=== PATIENT | male | born 1960 | race Caucasian/White ===

== ENCOUNTER 2024-12-05 11:03 | Outpatient (CLI) | payer MEDICARE, OTHER, SELFPAY ==
--- NOTE | ~2024-12-05 | PE_ITS ---
EXAMINATION: PET_PETPSMAST_PT DATE: 12/05/2024 13:24 INDICATION: Prostate cancer TECHNIQUE: 6.041 mCi of Illucix Ga-[id number]) was administered i.v. Low dose computed almaz graphy (CT) images were acquired from the base of the brain to the base of the brain to the proximal thighs for attenuation correction and anatomic localization. Positron emission tomography (PET) image s were acquired in the same distribution beginning 87 minutes after injection. Images including fused PET/CT images were reconstructed in axial, coronal, and sagittal planes. Automated exposure control technique was employed. The dose-length product was 723.64mGy-cm. COMPARISON: None FINDINGS: Head/neck: Typical pattern of symmetric physiologic increased activity in the lacrimal, parotid and submandibula r glands as well as along the mucosa of the nasal and oral cavities, pharynx and hypopharynx. No path ologically enlarged cervical lymphadenopathy or suspicious foci of increased uptake in the visualized head or neck. Chest: Small calcified nodules at the right apex consistent with old granulomatous disease. Mild dependent a telectasis in bilateral lower lobes. No other suspicious noncalcified pulmonary nodules, pneumonia, p ulmonary edema or pleural effusion. Heart size normal. No pericardial effusion. Thoracic aorta is nor mal in caliber. No pathologically enlarged or PSMA avid thoracic lymphadenopathy. Abdomen/pelvis/proximal thighs: Physiologic renal accumulation and excretion of activity in the kidneys, bladder and along portions o f ureters. Prostatomegaly measuring 4.7 x 3.7 cm. There is an approximately 1 cm focus of prominent i ncreased uptake with maximal SUV of 21.5 at the left posterior aspect of the prostate consistent with primary prostate cancer. Normal degree and slightly heterogenous pattern of increased uptake through out the liver and spleen without radiologic correlate or dominant PSMA avid lesion. The gallbladder, pancreas and bilateral adrenal glands are normal. Moderate uptake scattered throughout the bowels wit h typical duodenal and proximal jejunal predominance and without radiologic correlate, also likely ph ysiologic. Normal appendix. No other abnormal foci of increased uptake or pathologically enlarged lym phadenopathy in the abdomen, pelvis or proximal thighs. Musculoskeletal: No suspicious lytic, blastic or abnormally PSMA avid bone lesions. IMPRESSION: 1. Small region of prominent increased activity left posterior aspect of the enlarged prostate consis tent with primary prostate cancer. No evident metastatic disease. Reviewed, dictated and finalized at location A. IMPRESSION: 1. Small region of prominent increased activity left posterior aspect of the en larged prostate consistent with primary prostate cancer. No evident metastatic disease.
--- OUTSIDE RECORDS SUMMARY | 2024-12-05 11:08 | XMS_ITS | Referral Summary ---
Author Organization [facility] [address] Address [address] [place] [address] Phone Care Team Providers Care Hair Worker Name Role Phone Harish Crain MD Primary Care Provider [phone]- [phone] Encounters Date Type Department Care Team Description 11/13/2024 11:30 AM CDT - 11/13/2024 12:30 PM CDT Surgery [facility] Operating Room [address] [place] [address] Robert Jensen MD Transrectal ultrasound guided prostate biopsy 11/13/2024 10:40 AM CDT Anesthesia Event [facility] Operating Room [address] [place] [address] Caden Lees MD Reynolds, Ethan Emerson, MD 11/13/2024 8:44 AM CDT - 11/13/2024 1:00 PM CDT Hospital Encounter [facility] Operating Room 1 [place] [address] Robert Jensen MD Elevated prostate specific antigen (PSA) Discharge Disposition: Discharge to home or self care 09/22/2024 [facility] [address] [facility] [address] [place] [phone] Harish Crain MD Lab ([facility]) 09/22/2024 9:30 AM SHOT DROPPER Office Visit [facility] [address] [facility] [address] [place] [phone] Harish Crain MD Mixed hyperlipidemia (Primary Dx); Screening PSA (prostate specific antigen); Routine physical examination 09/15/2024 8:00 AM SHOT DROPPER Lab [facility] [address] [place] [address] Mixed hyperlipidemia from Last 3 Months Allergies Active Allergy Reactions Criticality Noted Date Comments Penicillins Rash Medium As child Medications No known medications Active Problems Problem Noted Date Diagnosed Date Elevated prostate specific antigen (PSA) 025 Family history of colon cancer 04/21/2024 Personal history of colonic polyps 04/21/2024 Routine physical examination 04/21/2024 Assessment & Plan (09/22/2024 12:31 PM SHOT DROPPER): IMMUNIZATIONS WERE REVIEWED EYE EXAM AND DENTAL UPTODATE NO CONGTIVE DECLINE SENSROY/ CONDUCTIVE HEARING LOSS CHRONIC AND STABLE COLONSCOPY UPTODATE SKIN ASSESSMENT WITH NO SUSPICIOUS LESIONS MIXED HYPERLIPIMDEWIA GOAL LDL IS UNDER 100 Mixed hyperlipidemia 11/12/2023 Assessment & Plan (03/13/2024 1:27 PM CDT): Flp and ldl were reviewed Goal ldl is under 100 Currently being controlled with diet and exercise/ has an appt with nutrutionist Assessment & Plan (11/12/2023 8:22 AM CDT): POOLED COHORT SCORE IS 11 PERCENT DECLINES A STATIN DISCUSSED REFERRAL FOR LOTTERY CLERK WAS DONE TODAY RPT FLP IN FOUR MONTH Elevated PSA measurement 11/12/2023 Assessment & Plan (03/13/2024 1:28 PM CDT): With steadily increasing values . 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 hence active surveillance follow up with dr jensen Assessment & Plan (11/12/2023 8:23 AM CDT): NUMBERS WERE DISCUSSED TODAY GRADUAL INCREASE IN PSA PT IS ASYMPTOMATIC WILL GO AHEAD AND REFER TO UROLOGY FOR FURTHER WORK UP Mixed conductive and sensori neural hearing loss of both ears 12/24/2017 Immunizations Immunization Administration Dates Next Due Influenza, Unspecified 09/22/2024(Deferr ed: Patient Refused),05/10/2023(Deferred: Patient Refused) Moderna SARS-CoV-2 Monovalen t Vaccination (12+ YRS) 11/05/2020,10/08/2020 Pfizer SARS-CoV-2 Monovalent Vaccination (12+ Yrs) PURPLE 05/03/2023 Tdap 04/25/2021 ZOSTER Recombinant 10/24/2023,08/15/2023 Social History Tobacco Use Types Packs/Day Years Used Date Smoking Tobacco: Never Smokeless Tobacco: Never Tobacco Cessation:Counseling Given: Not Answered Alcohol Use Standard Drinks/Week Comments No 0 (1 standard drink = 0.6 oz pur e alcohol) AUDIT-C Answer Date Recorded Q1: How often do you have a drink containing alc ohol? 2-4 times a month 11/13/2024 Q2: How many drinks containi ng alcohol do you have on a typical day when you are drinking? 1 or 2 11/13/2024 Q3: How often do you have si x or more drinks on one occasion? Never 11/13/2024 PHQ-2 Answer Date Recorded PHQ-2 Total Score (If total score is 3 or more points, staff should administer the PHQ-9) 0 09/22/2024 Personal Safety Answer Date Recorded Have you ever been in or are you currently in a harmful physical or emotional relationship or is someone making you feel afraid or unsafe? Denies 11/13/2024 Sex and Gender Information Value Date Recorded Sex Assigned at Not on file Legal Sex Male 4:07 PM SHOT DROPPER Gender Identity Not on file Sexual Orientation Not on file Last Filed Vital Signs Vital Sign Reading Time Taken Comments Blood Pressure 134/73 11/13/2024 12:35 PM CDT Pulse 51 11/13/2024 12:35 PM CDT Temperature 36.2 C (97.1 F) 11/13/2024 12:35 PM CDT Respiratory Rate 16 11/13/2024 12:35 PM CDT Oxygen Saturation 100% 11/13/2024 12:35 PM CDT Inhaled Oxygen Concentration - - Weight 69.1 kg (152 lb 5.4 oz) 11/13/2024 9:02 A M CDT Height 180.3 cm (5' 11 ) 11/13/2024 9:02 AM CDT Body Mass Index 21.25 11/13/2024 9:02 AM CDT Plan of Treatment Not on file Procedures Procedure Name Priority Date/Time Associated Diagnosis Comments SURGICAL PATHOLOGY Routine 11/13/2024 1: 24 PM CDT Elevated prostate specific antigen (PSA) URONAV GUIDED PROSTATE BIOPSY 11/13/2024 10:40 AM CDT Elevated prostate specific antigen (PSA) EGFR Routine 09/15/2024 8:00 AM SHOT DROPPER Mixed hyperlipidemia DIFFERENTIAL AUTO Routine 09/15/2024 8:0 0 AM SHOT DROPPER Mixed hyperlipidemia CBC WITH AUTO DIFFERENTIAL Routine 09/15/2024 8:00 AM SHOT DROPPER Mixed hyperlipidemia COMPREHENSIVE METABOLIC PANEL Routine 09/15/2024 8:00 AM SHOT DROPPER Mixed hyperlipidemia LIPID PANEL Routine 09/15/2024 8:00 AM SHOT DROPPER Mixed hyperlipidemia COLONOSCOPY 07/01/2024 7:08 AM SHOT DROPPER PSA SCREEN Routine 11/06/2023 7:59 AM CDT Routine physical examination Elevated PSA from Last 3 Months or Most Recently Relevant to Health Maintenance Results * Surgical pathology (11/13/2024 1:24 PM CDT) Tissue (Prostate, Needle Biopsy) 11/13/2024 9:52 AM CDT Tissue specimen (specimen) (Prostate, Needle Biopsy) 11/13/2024 9:52 AM CDT Tissue specimen (specimen) (Prostate, Needle Biopsy) 11/13/2024 9:52 AM CDT Tissue specimen (specimen) (Prostate, Needle Biopsy) 11/13/2024 9:52 AM CDT Tissue specimen (specimen) (Prostate, Needle Biopsy) 11/13/2024 9:52 AM CDT Tissue specimen (specimen) (Prostate, Needle Biopsy) 11/13/2024 9:52 AM CDT Tissue specimen (specimen) (Prostate, Needle Biopsy) 11/13/2024 9:52 AM CDT Tissue specimen (specimen) (Prostate, Needle Biopsy) 11/13/2024 9:52 AM CDT Tissue specimen (specimen) (Prostate, Needle Biopsy) 11/13/2024 9:52 AM CDT Tissue specimen (specimen) (Prostate, Needle Biopsy) 11/13/2024 9:52 AM CDT Tissue specimen (specimen) (Prostate, Needle Biopsy) 11/13/2024 9:52 AM CDT Tissue specimen (specimen) (Prostate, Needle Biopsy) 11/13/2024 9:52 AM CDT Narrative PATHOLOGY [facility] - 11/18/2024 11:24 AM CDT EPIC results best viewed via link to PDF [facility] Department of Pathology [address] [place] [address] Note to Patients: This report may contain a detailed description of human tissue sent by a health care provider to the laboratory for pathologic evaluation. The content of this report is essential for diagnosis and may provide important critical findings. This information may be unfamiliar to patients to review without a medical professional present. It is advised that the patient review this report in the presence of a health care provider who can answer questions and explain the details. Final Report Patient Name: LIVE ROSE JRTriston Address: [address] [place] [address]- Gender: M : 1960 (Age: 64) Service: Surgery Location: [facility] Hospital #: [id number] Patient Type: [facility] Taken: 11/13/2024 Received: 11/13/2024 Accessioned: 11/13/2024 Reported: 11/18/2024 Physician(s):Robert Jensen M.D. Diagnosis: G, I. Prostate (LLB, LLM), needle biopsies: - Adenocarcinoma: - LLB: 4 + 3 = 7 (80% pattern 4), grade group 3, involving 6 linear mm (50% of total core length). - LLM: 4 + 3 = 7 (70% pattern 4), grade group 3, involving 4 linear mm (30% of total core length) A-F, H, J-L. Prostate (RLB, RMB, RLM, RMM, RLA, RMA, LMB, LMM, LLA, LMA), needle biopsies: - Benign prostatic tissue. Vlad Keys MD Report Electronically Reviewed and Signed Out By Vlad Keys MD 11/18/2024 11:24:13 Specimen(s) Received: A: Right lateral base B: Right medial base C: Right lateral mid D: Right medial mid E: Right lateral apex F: Right medial apex G: Left lateral base H: Left medial base I: Left lateral mid J: Left medial mid K: Left lateral apex L: Left medial apex Microscopic Description: G, I. Specimens from these sites show similar findings and will be described together. Sections show adenocarcinoma. PIN-4 stains are performed with appropriately reactive controls (blocks G1, I1) and show loss of the basal cell layers and increased AMACR expression in the adenocarcinoma. Recommend follow-up as clinically indicated. A-F, H, J-L. Specimens from these sites show similar findings and will be described together. Sections show benign-appearing prostatic glands and stroma. PIN-4 stains are performed with appropriately reactive controls on blocks B1 and L1 to evaluate a few mildly distorted glands and demonstrate no increase in AMACR expression with concurrent loss of basal layer staining. Intradepartmental consultation: Specimens B, G, I, and L from this case were also reviewed by Dr. Britton, who concurs with the above findings. Clinical History: Elevated prostate specific antigen. Transrectal ultrasound guided prostate biopsy. Gross Description: The specimen is submitted in twelve containers labeled LIVE ROSE . A. The first container is labeled left lateral base . It is 1 core of morgan tissue measuring 1.5 cm. Entirely in A. B. The second container is labeled right medial base . It is 1 core of morgan tissue measuring 1.4 cm. Entirely in B. C. The third container is labeled right lateral mid . It is 1 core of morgan tissue measuring 1 cm. Entirely in C. D. The fourth container is labeled right medial mid . It is 1 core of morgan tissue measuring 1.1 cm. Entirely in D. E. The fifth container is labeled right lateral apex . It is 1 core of morgan tissue measuring 1 cm. Entirely in E. F. The sixth container is labeled right medial apex . It is 1 core of morgan tissue measuring 4 mm. Entirely in F. G. The seventh container is labeled left lateral base . It is 1 core of morgan tissue measuring 1.2 cm. Entirely in G. H. The eighth container is labeled left medial base . It is 1 core of morgan tissue measuring 8 mm. Entirely in H. I. The ninth container is labeled left lateral mid . It is 1 core of morgan tissue measuring 1.3 cm. Entirely in I. J. The tenth container is labeled left medial mid . It is 1 core of morgan tissue measuring 1.2 cm. Entirely in J. K. The eleventh container is labeled left lateral apex . It is 1 core of morgan tissue measuring 7 mm. Entirely in K. L. The twelfth container is labeled left medial apex . It is 1 core of morgan tissue measuring 7 mm. Entirely in L. T.A. Fabiola Wakefield, Harrison./Rupert Nicholson M.D. REPORT IMAGES AND SCANNED DOCUMENTS, IF INCLUDED, ONLY VIEWABLE IN PDF VERSION OF REPORT The performance characteristics of some immunohistochemical stains, fluorescence in-situ hybridization tests and immunophenotyping by flow cytometry cited in this report (if any) were determined by the Surgical Pathology Department at [facility] as part of an ongoing quality control manager program and in compliance with federally mandated regulations drawn from the Clinical Laboratory Improvement Act of 1988 (CLIA '88). Some of these tests rely on the use of analyte specific reagents and are subject to specific labeling requirements by the US Food and Drug Administration. Such diagnostic tests may only be performed in a facility that is certified by the Department of Health and Human Services as a high complexity laboratory under CLIA '88. The FDA has determined that such clearance or approval is not necessary. This test is used for clinical purposes. It should not be regarded as investigational or for research. Nevertheless, federal rules concerning the medical use of analyte specific reagents require that the following disclaimer be attached to the report: This test was developed and its performance characteristics determined by the Surgical Pathology Department [facility]. It has not been cleared or approved by the U. S. Food and Drug Administration. Note for decalcified specimens: This assay has not been validated on decalcified tissues. Results should be interpreted with caution given the possibility of false negativity on decalcified specimens Robert Jensen MD LAB PATHOLOGY ORDERA BLES Final Result PATHOLOGY [facility] ([place] 1 [place] [address] * eGFR (09/15/2024 8:00 AM SHOT DROPPER) eGFR 83 >=60 mL/min/1. 73 m2 Comment: Interpretive Data Reference Interval Normal >/= 90 mL/min/1.73m2 Mildly decreased* 60 - 89 mL/min/1.73m2 Mildly to moderately decreased 45 - 59 mL/min/1.73m2 Moderately to severely decreased 30 - 44 mL/min/1.73m2 Severely decreased 15 - 29 mL/min/1.73m2 Kidney Failure < 15 mL/min/1.73m2 *Relative to young adult level Estimated glomerular filtration rate is determined by the 2020 CKD-EPI equation recommended by the National Kidney Foundation (A Unifying Approach to GFR Estimation: Recommendations of the NKF-ASK Task Force on Reassessing the Inclusion of Race in Diagnosing Kidney Disease, JASN 2020). The CKD-EPI equation should not be used for patients with unstable renal function and has not been validated in children and those over 70. Current interpretive data was last reviewed 2021. Testing performed by: [address] [address] Blood 09/15/2024 8:00 AM SHOT DROPPER 09/15/2024 12:45 PM SHOT DROPPER Harish Crain MD LAB BLOOD ORDERABLES Final Result [address] [place] [address] * Differential, auto (09/15/2024 8:00 AM SHOT DROPPER) Pathologist [facility] Neutrophil abs 2.5 1.5 - 6.5 K/cumm Comment:Testing performed by : [address] [address] Imm gran abs 0.0 0.0 - 0.1 K/cumm MARIELY Comment:Testing performed by : [address], [address] Lymphocyte abs 1.1 0.8 - 3.3 K/cumm MARIELY Comment:Testing performed by : [address], [address] Monocyte abs 0.5 0.2 - 0.8 K/cumm CERNER CH Comment:Testing performed by : [facility], [address] [place] [address]., [address] Eosinophil abs 0.3 0.0 - 0.5 K/cumm CERNER CH Comment:Testing performed by : [facility], [address] [place] [address]., [address] Basophil abs 0.0 0.0 - 0.1 K/cumm CERNER CH Comment:Testing performed by : [address] [address] Neutrophil pct 55.8 % CERNER CH Comment: Interpretive Data Percent cell count reference ranges are not reported, since discordance with absolute values may lead to misinterpretation of CBC data. Current Interpretive Data was last revised on 2017. Testing performed by: [address] [address] Imm gran pct 0.2 % CERNER CH Comment: Interpretive Data Percent cell count reference ranges are not reported, since discordance with absolute values may lead to misinterpretation of CBC data. Current Interpretive Data was last revised on 2017. Testing performed by: [facility], [address] [place] [address]., [address] Lymphocyte pct 24.5 % CERNER CH Comment: Interpretive Data Percent cell count reference ranges are not reported, since discordance with absolute values may lead to misinterpretation of CBC data. Current Interpretive Data was last revised on 2017. Testing performed by: [address] [address] Monocyte pct 11.6 % CERNER CH Comment: Interpretive Data Percent cell count reference ranges are not reported, since discordance with absolute values may lead to misinterpretation of CBC data. Current Interpretive Data was last revised on 2017. Testing performed by: [address] [address] Eosinophil pct 7.0 % CERNER CH Comment: Interpretive Data Percent cell count reference ranges are not reported, since discordance with absolute values may lead to misinterpretation of CBC data. Current Interpretive Data was last revised on 2017. Testing performed by: [address] [address] Basophil pct 0.9 % CERNER CH Comment: Interpretive Data Percent cell count reference ranges are not reported, since discordance with absolute values may lead to misinterpretation of CBC data. Current Interpretive Data was last revised on 2017. Testing performed by: [address] [address] Blood 09/15/2024 8:00 AM SHOT DROPPER 09/15/2024 12:30 PM SHOT DROPPER Harish Crain MD LAB BLOOD ORDERABLES Final Result [address] Department [place] [address] * CBC with auto differential (09/15/2024 8:00 AM SHOT DROPPER) WBC 4.4 3.8 - 9.9 K/cumm Comment:Testing performed by : [address], [address] Hgb 14.6 13.0 - 17.5 g/dL CERNER Comment:Testing performed by : [address], [address] Hct 44.8 38.9 - 50.3 % CERNER Comment:Testing performed by : [address], [address] Plt 249 150 - 400 K/cumm CERNER CH Comment:Testing performed by : [address], [address] MPV 11.0 9.1 - 12.3 fL CERNER CH Comment:Testing performed by : [address], [address] RBC 4.75 4.30 - 5.80 M/cumm CERNER CH Comment:Testing performed by : [address], [address] MCV 94.3 81.3 - 96.4 fL CERNER CH Comment:Testing performed by : [address], [address] MCH 30.7 27.1 - 33.3 pg CERNER CH Comment:Testing performed by : [address], [address] MCHC 32.6 32.3 - 35.7 g/dL MARIELY Comment:Testing performed by : [address] [address] RDW CV 11.9 11.1 - 14.9 % MARIELY Comment:Testing performed by : [address] [address] RDW SD 41.4 35.7 - 48.1 fL MARIELY Comment:Testing performed by : [address], [address] NRBC abs 0.00 0.00 - 0.01 K/cumm MARIELY Comment:Testing performed by : [address], [address] Blood 09/15/2024 8:00 AM SHOT DROPPER 09/15/2024 12:30 PM SHOT DROPPER Harish Crain MD LAB BLOOD ORDERABLES Final Result [facility] [address] [place] [address] * Lipid panel (09/15/2024 8:00 AM SHOT DROPPER) Cholesterol 195 30 - 199 mg/dL Comment: Interpretive Data Ages < or = 19 years Acceptable: <170 mg/dL Borderline high: 170-199 mg/dL High: >or= 200 mg/dL Ages > or = 20 years Desirable: <200 mg/dL Borderline high: 200-239 mg/dL High: >or= 240 mg/dL Literature References: 1. Expert Panel on Integrated Guidelines for Cardiovascular Health and Risk Reduction in Children and Adolescents. Pediatrics 2011;128:S213 2. NCEP Expert Panel. Circulation 2004;110:227 Current Interpretive Data was last revised on 2018. Testing performed by: [address], [address] Triglycerides 48 <=149 mg/dL MARIELY Comment: Interpretive Data Ages < or = 9 years Acceptable: <75 mg/dL Borderline high: 75-99 mg/dL High: >or= 100 mg/dL Ages 10 to 20 years Acceptable: <90 mg/dL Borderline high: 90-129 mg/dL High: >or= 130 mg/dL Ages > or = 20 years Desirable: <150 mg/dL Borderline high: 150-199 mg/dL High: 200-499 mg/dL Very high: >or= 499 mg/dL Literature References: 1. Expert Panel on Integrated Guidelines for Cardiovascular Health and Risk Reduction in Children and Adolescents. Pediatrics 2011;128:S213 2. NCEP Expert Panel. Circulation 2004;110:227 Current Interpretive Data was last revised on 2018. Testing performed by: [facility], [address] [place] [address]., [address] HDL 68 >=40 mg/dL MARIELY Comment: Interpretive Data Ages < or = 19 years Acceptable: >45 mg/dL Borderline low: 40-45 mg/dL Low: <40 mg/dL Ages > or = 20 years Desirable: >or= 60 mg/dL Low: <40 mg/dL Literature References: 1. Expert Panel on Integrated Guidelines for Cardiovascular Health and Risk Reduction in Children and Adolescents. Pediatrics 2011;128:S213 2. NCEP Expert Panel. Circulation 2004;110:227 Current Interpretive Data was last revised on 2018. Testing performed by: [facility], [address] [place] [address]., [address] LDL, calculated 118 <=129 mg/dL [facility] Comment: Interpretive Data Ages < or = 19 years Acceptable: <110 mg/dL Borderline high: 110-129 mg/dL High: >or= 130 mg/dL Ages > or = 20 years Optimal: <100 mg/dL Near optimal: 100-129 mg/dL Borderline high: 130-159 mg/dL High: >160 mg/dL Calculated using the Brando LDL-C estimating equation. This equation was implemented on 2024. Prior to this date LDL-C was estimated using the Friedewald equation. Literature References: 1. Expert Panel on Integrated Guidelines for Cardiovascular Health and Risk Reduction in Children and Adolescents. Pediatrics 2011;128:S213 2. NCEP Expert Panel. Circulation 2004;110:227 3. Brando Hou al. GLENN Cardiol. 2020 November 20;5(5):540-548. doi: 10.1001/jamacardio.2020.0013 Current Interpretive Data was last revised on 2024. Testing performed by: [address] [address] Non-HDL Cholesterol 127 mg/dL MARIELY Comment: Interpretive Data Ages < or = 19 years Acceptable: <120 mg/dL Borderline high: 120-144 mg/dL High: >145 mg/dL Ages > or = 20 years When triglycerides are >200 mg/dL, Non-HDL cholesterol is a secondary target of therapy with treatment goals that are 30 mg/dL greater than the LDL cholesterol target. Literature References: 1. Expert Panel on Integrated Guidelines for Cardiovascular Health and Risk Reduction in Children and Adolescents. Pediatrics 2011;128:S213 2. NCEP Expert Panel. Circulation 2004;110:227 Current Interpretive Data was last revised on 2018. Testing performed by: [address] [address] Chol/HDL ratio 3 MARIELY Comment:Testing performed by : [address] [address] Blood 09/15/2024 8:00 AM SHOT DROPPER 09/15/2024 12:30 PM SHOT DROPPER us Harish Crain MD LAB BLOOD ORDERABLES Final Result MARIELY [address] Department [place] [address] * Comprehensive metabolic panel (09/15/2024 8:00 AM SHOT DROPPER) Sodium 142 135 - 145 mmol/L Comment:Testing performed by : [address] [address] Potassium, pl 4.5 3.3 - 4.9 mmol/L MARIELY Comment:Testing performed by : [address] [address] Chloride 105 97 - 110 mmol/L MARIELY Comment:Testing performed by : [address] [address] CO2 25 22 - 32 mmol/L MARIELY Comment:Testing performed by : [address] [address] Anion gap 12 2 - 15 mmol/L CERNER CH Comment:Testing performed by : [address] [address] BUN 21 6 - 25 mg/dL CERNER CH Comment:Testing performed by : [address] [address] Creatinine 1.01 0.80 - 1.30 mg/dL CERNER CH Comment:Testing performed by : [address], [address] Glucose 100 70 - 199 mg/dL CERNER CH Comment: Interpretive Data Fasting glucose >/= 126 mg/dl is diagnostic for diabetes. Fasting is defined as no caloric intake for at least 8 hours. Fasting glucose between 100 mg/dl to 125 mg/dl is diagnostic of prediabetes. In a patient with classic symptoms of hyperglycemia or hyperglycemic crisis, a random glucose >/= 200 mg/dl is diagnostic for diabetes. In the absence of unequivocal hyperglycemia, results should be confirmed by repeat testing. The classification and Diagnosis of Diabetes Diabetes Care 2021; 46: S19-S40. Current interpretive data was last revised 2022. Testing performed by: [address] [address] Calcium 9.4 8.5 - 10.3 mg/dL CERNER CH Comment:Testing performed by : [address], [address] Bilirubin, total 0.5 0.1 - 1.2 mg/dL CERNER CH Comment:Testing performed by : [address], [address] Protein, pl 6.8 6.5 - 8.5 g/dL CERNER CH Comment:Testing performed by : [address] [address] Albumin 4.2 3.5 - 5.0 g/dL CERNER CH Comment:Testing performed by : [address], [address] Alk phos 65 40 - 130 Units/L CERNER CH Comment:Testing performed by : [address], [address] ALT 20 7 - 55 Units/L CERNER CH Comment:Testing performed by : [address], [address] AST 17 10 - 50 Units/L MARIELY STOCK Comment:Testing performed by : [facility] Center, [address] [place]., [address] Blood 09/15/2024 8:00 AM SHOT DROPPER 09/15/2024 12:30 PM SHOT DROPPER Harish Crain MD LAB BLOOD ORDERABLES Final Result [facility] [address] [facility] Department [place] [address] * Colonoscopy (07/01/2024 7:08 AM SHOT DROPPER) Anatomical Region Laterality Modality Other Narrative Procedure Note Charlie Cantrell, - 07/01/2024 7:08 AM CST [facility] Patient Name: Live Rose Procedure Date: 07/01/2024 7:08 AM Date of : 1960 Admit Type: Outpatient Age: 63 Gender: Male Attending MD: Charlie Cantrell D.O. Room: [facility] ENDOSCOPY ROOM 2 Note Status: Finalized Patient Profile: Refer to note in patient chart for documentation of history and physical. Procedure: Colonoscopy Indications: High risk colon cancer surveillance: Personalhistory of colonic polyps, Last colonoscopy: December 2017 Referring MD: Harish Crain M.D. Providers: Charlie Cantrell D.O. Impression: - The examined portion of the ileum was normal. - The entire examined colon is normal on direct and retroflexion views. - No specimens collected. Recommendation: - Discharge patient to home. - Resume previous diet. - Continue present medications. - Repeat colonoscopy in 5 years for surveillance. - Return to primary care physician PRN. Medicines: Monitored Anesthesia Care Complications: No immediate complications. Estimated Blood Loss: Estimated blood loss was minimal. Procedure: Pre-Anesthesia Assessment: - As per anesthesia. The benefits, risks and alternatives of theprocedure and sedation were discussed and informed consentwas obtained. All questions were answered. Please referto the signed informed consent document in the medical record. The bowel preparation used was Miralax via split dose instruction. The bowel preparation usedwas bisacodyl tablets via split dose instruction. The scope was passed under direct vision. The Pediatric Colonoscope [id number]-[id number] was introducedthrough the anus and advanced to the 5 cm into the ileum.The terminal ileum, ileocecal valve, appendicealorifice, and rectum were photographed. The colonoscopy was somewhat difficult due to a redundant colon. The patient tolerated the procedure well. The qualityof the bowel preparation was good. Findings: The perianal and digital rectal examinations were normal. The terminal ileum appeared normal. The entire examined colon appeared normal on direct and retroflexion views. Electronically signed by Charlie Cantrell M.D. Charlie Cantrell D.O. 07/01/2024 7:53:14 AM Number of Addenda: 0 Note Initiated On: 07/01/2024 7:08 AM Procedure Code(s): --- Professional --- G0105, Colorectal cancer screening; colonoscopy on individual at high risk --- Technical --- G0105, Colorectal cancer screening; colonoscopy on individual at high risk Diagnosis Code(s): --- Professional --- Z86.010, Personal history of colonic polyps --- Technical --- Z86.010, Personal history of colonic polyps CPT copyright 2020 [employer]. All rights reserved. The codes documented in this report are preliminary and upon foreign collection clerk reviewmay be revised to meet current compliance requirements. Recognized by the [employer] for promoting quality in endoscopy Charlie Cantrell DO ENDOSCOPY PROCEDURES Final Res ult * PSA screen (11/06/2023 7:59 AM CDT) PSA-Total 4.14 <=5.40 ng/mL Comment: Interpretive Data AGE SEX REFERENCE INTERVAL 0 minutes-150 years Female None 0 minutes-49 years Male None 50-59 years Male 0-3.90 60-69 years Male 0-5.40 70-79 years Male 0-6.20 80-150 years Male 0-6.20 The Js PSA Total assay procedure was used. Results from different manufacturers or methods may not be comparable. Serial testing should be performed using the same method. Current interpretive data last revised 21. Testing performed by: [facility], [address] [place] [address]., [address] Blood 11/06/2023 7:59 AM CDT 11/06/2023 1:57 PM CDT Harish Crain MD LAB BLOOD ORDERABLES Final Result Performing Organization Address City/State/[facility] Co de Phone Number [address] [place] [address] from Last 3 Months or Most Recently Relevant to Health Maintenance [place] [address] [address] [facility] [id number] [facility] HMO/PPO Phone [phone]|[id number]|2024-12-05 11:08:00|2024-12-05 11:08:00|XMS_ITS|BKG DAEMON|External Medical Summaries|[id number]|" Clinical Summary Created on: December 05, 2024 Live Rose Jr. : 1960 Sex: Male Author Organization [facility] [address] Address [address] [place] [address] Phone Care Team Providers Care Hair Worker Name Role Phone Harish Crain MD Primary Care Provider [phone] Allergies Active Allergy Reactions Criticality Noted Date Comments Penicillins Rash Medium As child Medications No known medications Active Problems Problem Noted Date Diagnosed Date Elevated prostate specific antigen (PSA) 025 Family history of colon cancer 04/21/2024 Personal history of colonic polyps 04/21/2024 Routine physical examination 04/21/2024 Assessment & Plan (09/22/2024 12:31 PM SHOT DROPPER): IMMUNIZATIONS WERE REVIEWED EYE EXAM AND DENTAL UPTODATE NO CONGTIVE DECLINE SENSROY/ CONDUCTIVE HEARING LOSS CHRONIC AND STABLE COLONSCOPY UPTODATE SKIN ASSESSMENT WITH NO SUSPICIOUS LESIONS MIXED HYPERLIPIMDEWIA GOAL LDL IS UNDER 100 Mixed hyperlipidemia 11/12/2023 Assessment & Plan (03/13/2024 1:27 PM CDT): Flp and ldl were reviewed Goal ldl is under 100 Currently being controlled with diet and exercise/ has an appt with nutrutionist Assessment & Plan (11/12/2023 8:22 AM CDT): POOLED COHORT SCORE IS 11 PERCENT DECLINES A STATIN DISCUSSED REFERRAL FOR LOTTERY CLERK WAS DONE TODAY RPT FLP IN FOUR MONTH Elevated PSA measurement 11/12/2023 Assessment & Plan (03/13/2024 1:28 PM CDT): With steadily increasing values . 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 hence active surveillance follow up with dr aliperti Assessment & Plan (11/12/2023 8:23 AM CDT): NUMBERS WERE DISCUSSED TODAY GRADUAL INCREASE IN PSA PT IS ASYMPTOMATIC WILL GO AHEAD AND REFER TO UROLOGY FOR FURTHER WORK UP Mixed conductive and sensori neural hearing loss of both ears 12/24/2017 Encounters Date Type Department Care Team Description 11/13/2024 11:30 AM CDT - 11/13/2024 12:30 PM CDT Surgery [facility] Operating Room [address] [place] [address] Robert Jensen MD Transrectal ultrasound guided prostate biopsy 11/13/2024 10:40 AM CDT Anesthesia Event [facility] Operating Room [address] [place] [address] Caden Lees MD Reynolds, Ethan Emerson, MD 11/13/2024 8:44 AM CDT - 11/13/2024 1:00 PM CDT Hospital Encounter [facility] Operating Room [address] [place] [address] Robert Jensen MD Elevated prostate specific antigen (PSA) Discharge Disposition: Discharge to home or self care 09/22/2024 9:30 AM SHOT DROPPER Office Visit [facility] [address] [place] [address] Harish Crain MD Mixed hyperlipidemia (Primary Dx); Screening PSA (prostate specific antigen); Routine physical examination 09/22/2024 Telephone [facility] [address] [place] [address] Harish Crain MD Lab ([facility]) 09/15/2024 8:00 AM SHOT DROPPER Lab [facility] [address] [place] [address] Mixed hyperlipidemia from Last 3 Months Immunizations Immunization Administration Dates Next Due Influenza, Unspecified 09/22/2024(Deferr ed: Patient Refused),05/10/2023(Deferred: Patient Refused) Moderna SARS-CoV-2 Monovalen t Vaccination (12+ YRS) 11/05/2020,10/08/2020 Pfizer SARS-CoV-2 Monovalent Vaccination (12+ Yrs) PURPLE 05/03/2023 Tdap 04/25/2021 ZOSTER Recombinant 10/24/2023,08/15/2023 Surgical History Surgery Date Site/Laterality Comments KNEE SURGERY Knee Surgery COLONOSCOPY 12/21/2017 - 01/19/2018 COLONOSCOPY 07/01/2024 VASECTOMY 1994 Medical History Medical History Date Comments Adenomatous colon polyp HLD (hyperlipidemia) Hank-Schlatter's disease Family History Medical History Relation Name Comments Heart attack Father Heart disease Father Heart disease; Breast cancer Maternal Grandmother Cancer , breast; Colon cancer Maternal Grandmother Cancer, colon; Relation Name Status Comments Father Alive Maternal Grandmother Alive Social History Tobacco Use Types Packs/Day Years Used Date Smoking Tobacco: Never Smokeless Tobacco: Never Tobacco Cessation:Counseling Given: Not Answered Alcohol Use Standard Drinks/Week Comments No 0 (1 standard drink = 0.6 oz pur e alcohol) AUDIT-C Answer Date Recorded Q1: How often do you have a drink containing alc ohol? 2-4 times a month 11/13/2024 Q2: How many drinks containi ng alcohol do you have on a typical day when you are drinking? 1 or 2 11/13/2024 Q3: How often do you have si x or more drinks on one occasion? Never 11/13/2024 PHQ-2 Answer Date Recorded PHQ-2 Total Score (If total score is 3 or more points, staff should administer the PHQ-9) 0 09/22/2024 Personal Safety Answer Date Recorded Have you ever been in or are you currently in a harmful physical or emotional relationship or is someone making you feel afraid or unsafe? Denies 11/13/2024 Sex and Gender Information Value Date Recorded Sex Assigned at Not on file Legal Sex Male 4:07 PM SHOT DROPPER Gender Identity Not on file Sexual Orientation Not on file Obstetrics History Last Filed Vital Signs Vital Sign Reading Time Taken Comments Blood Pressure 134/73 11/13/2024 12:35 PM CDT Pulse 51 11/13/2024 12:35 PM CDT Temperature 36.2 C (97.1 F) 11/13/2024 12:35 PM CDT Respiratory Rate 16 11/13/2024 12:35 PM CDT Oxygen Saturation 100% 11/13/2024 12:35 PM CDT Inhaled Oxygen Concentration - - Weight 69.1 kg (152 lb 5.4 oz) 11/13/2024 9:02 A M CDT Height 180.3 cm (5' 11 ) 11/13/2024 9:02 AM CDT Body Mass Index 21.25 11/13/2024 9:02 AM CDT Plan of Treatment Health Maintenance Due Date Last Done Comments Hepatitis C Screening 1960 Hepatitis B Screening 1977 Pneumococcal vaccine 65+ (1 of 1 - PCV) 2009 Covid-19 Vaccine (2023-2 5 season) 2024 05/03/2023, 05/03/2023, 05/12/2022, Additional history exists Influenza Vaccine (Season Ended) 2025 Depression Screening 09/22/2025 09/22/2024, 05/07/20 Fall Risk Assessment 09/22/2025 09/22/2024 Well Visit 65+ 09/22/2025 09/22/2024, 04/22, 05/04/2022, Additional history exists Prostate Cancer Screening-PSA 11/05/2025, 04/30/2023, 07/13/2021, Additional history exists Colon Cancer Screening-Colonoscopy 07/01/2029 07/01/2024, 11/09/2014 DTaP/Tdap/Td Vaccine (2 - Td or Tdap) 04/25/2031 04/25/2021 Zoster Vaccine Completed 10/24/2023, 08/15/2023 Colon Cancer Screening-CT Colonography Discontinued 07/01/2024 Colon Cancer Screening-DNA Stool Discontinued 07/01/20 Colon Cancer Screening-FIT Discontinued 07/01/2024 Colon Cancer Screening-Sigmoidoscopy Discontinued 07/01/2024 Procedures Procedure Name Priority Date/Time Associated Diagnosis Comments SURGICAL PATHOLOGY Routine 11/13/2024 1: 24 PM CDT Elevated prostate specific antigen (PSA) URONAV GUIDED PROSTATE BIOPSY 11/13/2024 10:40 AM CDT Elevated prostate specific antigen (PSA) EGFR Routine 09/15/2024 8:00 AM SHOT DROPPER Mixed hyperlipidemia DIFFERENTIAL AUTO Routine 09/15/2024 8:0 0 AM SHOT DROPPER Mixed hyperlipidemia CBC WITH AUTO DIFFERENTIAL Routine 09/15/2024 8:00 AM SHOT DROPPER Mixed hyperlipidemia COMPREHENSIVE METABOLIC PANEL Routine 09/15/2024 8:00 AM SHOT DROPPER Mixed hyperlipidemia LIPID PANEL Routine 09/15/2024 8:00 AM SHOT DROPPER Mixed hyperlipidemia COLONOSCOPY 07/01/2024 7:08 AM SHOT DROPPER PSA SCREEN Routine 11/06/2023 7:59 AM CDT Routine physical examination Elevated PSA from Last 3 Months or Most Recently Relevant to Health Maintenance Results * Surgical pathology (11/13/2024 1:24 PM CDT) Tissue (Prostate, Needle Biopsy) 11/13/2024 9:52 AM CDT Tissue specimen (specimen) (Prostate, Needle Biopsy) 11/13/2024 9:52 AM CDT Tissue specimen (specimen) (Prostate, Needle Biopsy) 11/13/2024 9:52 AM CDT Tissue specimen (specimen) (Prostate, Needle Biopsy) 11/13/2024 9:52 AM CDT Tissue specimen (specimen) (Prostate, Needle Biopsy) 11/13/2024 9:52 AM CDT Tissue specimen (specimen) (Prostate, Needle Biopsy) 11/13/2024 9:52 AM CDT Tissue specimen (specimen) (Prostate, Needle Biopsy) 11/13/2024 9:52 AM CDT Tissue specimen (specimen) (Prostate, Needle Biopsy) 11/13/2024 9:52 AM CDT Tissue specimen (specimen) (Prostate, Needle Biopsy) 11/13/2024 9:52 AM CDT Tissue specimen (specimen) (Prostate, Needle Biopsy) 11/13/2024 9:52 AM CDT Tissue specimen (specimen) (Prostate, Needle Biopsy) 11/13/2024 9:52 AM CDT Tissue specimen (specimen) (Prostate, Needle Biopsy) 11/13/2024 9:52 AM CDT Narrative PATHOLOGY [facility] - 11/18/2024 11:24 AM CDT EPIC results best viewed via link to PDF [facility] Department of Pathology [address] [place] [id number] Note to Patients: This report may contain a detailed description of human tissue sent by a health care provider to the laboratory for pathologic evaluation. The content of this report is essential for diagnosis and may provide important critical findings. This information may be unfamiliar to patients to review without a medical professional present. It is advised that the patient review this report in the presence of a health care provider who can answer questions and explain the details. Final Report Patient Name: LIVE ROSE JR. Address: [address] [place] [address]- Gender: M : 1960 (Age: 64) Service: Surgery Location: [facility] Hospital #: [id number] Patient Type: [facility] Taken: 11/13/2024 Received: 11/13/2024 Accessioned: 11/13/2024 Reported: 11/18/2024 Physician(s):Robert Jensen M.D. Diagnosis: G, I. Prostate (LLB, LLM), needle biopsies: - Adenocarcinoma: - LLB: 4 + 3 = 7 (80% pattern 4), grade group 3, involving 6 linear mm (50% of total core length). - LLM: 4 + 3 = 7 (70% pattern 4), grade group 3, involving 4 linear mm (30% of total core length) A-F, H, J-L. Prostate (RLB, RMB, RLM, RMM, RLA, RMA, LMB, LMM, LLA, LMA), needle biopsies: - Benign prostatic tissue. Vlad Keys MD Report Electronically Reviewed and Signed Out By Vlad Keys MD 11/18/2024 11:24:13 Specimen(s) Received: A: Right lateral base B: Right medial base C: Right lateral mid D: Right medial mid E: Right lateral apex F: Right medial apex G: Left lateral base H: Left medial base I: Left lateral mid J: Left medial mid K: Left lateral apex L: Left medial apex Microscopic Description: G, I. Specimens from these sites show similar findings and will be described together. Sections show adenocarcinoma. PIN-4 stains are performed with appropriately reactive controls (blocks G1, I1) and show loss of the basal cell layers and increased AMACR expression in the adenocarcinoma. Recommend follow-up as clinically indicated. A-F, H, J-L. Specimens from these sites show similar findings and will be described together. Sections show benign-appearing prostatic glands and stroma. PIN-4 stains are performed with appropriately reactive controls on blocks B1 and L1 to evaluate a few mildly distorted glands and demonstrate no increase in AMACR expression with concurrent loss of basal layer staining. Intradepartmental consultation: Specimens B, G, I, and L from this case were also reviewed by Dr. Britton, who concurs with the above findings. Clinical History: Elevated prostate specific antigen. Transrectal ultrasound guided prostate biopsy. Gross Description: The specimen is submitted in twelve containers labeled LIVE ROSE . A. The first container is labeled left lateral base . It is 1 core of morgan tissue measuring 1.5 cm. Entirely in A. B. The second container is labeled right medial base . It is 1 core of morgan tissue measuring 1.4 cm. Entirely in B. C. The third container is labeled right lateral mid . It is 1 core of morgan tissue measuring 1 cm. Entirely in C. D. The fourth container is labeled right medial mid . It is 1 core of morgan tissue measuring 1.1 cm. Entirely in D. E. The fifth container is labeled right lateral apex . It is 1 core of morgan tissue measuring 1 cm. Entirely in E. F. The sixth container is labeled right medial apex . It is 1 core of morgan tissue measuring 4 mm. Entirely in F. G. The seventh container is labeled left lateral base . It is 1 core of morgan tissue measuring 1.2 cm. Entirely in G. H. The eighth container is labeled left medial base . It is 1 core of morgan tissue measuring 8 mm. Entirely in H. I. The ninth container is labeled left lateral mid . It is 1 core of morgan tissue measuring 1.3 cm. Entirely in I. J. The tenth container is labeled left medial mid . It is 1 core of morgan tissue measuring 1.2 cm. Entirely in J. K. The eleventh container is labeled left lateral apex . It is 1 core of morgan tissue measuring 7 mm. Entirely in K. L. The twelfth container is labeled left medial apex . It is 1 core of morgan tissue measuring 7 mm. Entirely in Karrie. T.A. Fabiola Wakefield P.A./Rupert Nicholson M.D. REPORT IMAGES AND SCANNED DOCUMENTS, IF INCLUDED, ONLY VIEWABLE IN PDF VERSION OF REPORT The performance characteristics of some immunohistochemical stains, fluorescence in-situ hybridization tests and immunophenotyping by flow cytometry cited in this report (if any) were determined by the Surgical Pathology Department at [facility] as part of an ongoing quality control manager program and in compliance with federally mandated regulations drawn from the Clinical Laboratory Improvement Act of 1988 (CLIA '88). Some of these tests rely on the use of analyte specific reagents and are subject to specific labeling requirements by the US Food and Drug Administration. Such diagnostic tests may only be performed in a facility that is certified by the Department of Health and Human Services as a high complexity laboratory under CLIA '88. The FDA has determined that such clearance or approval is not necessary. This test is used for clinical purposes. It should not be regarded as investigational or for research. Nevertheless, federal rules concerning the medical use of analyte specific reagents require that the following disclaimer be attached to the report: This test was developed and its performance characteristics determined by the Surgical Pathology Department [facility]. It has not been cleared or approved by the U. S. Food and Drug Administration. Note for decalcified specimens: This assay has not been validated on decalcified tissues. Results should be interpreted with caution given the possibility of false negativity on decalcified specimens Robert Jensen MD LAB PATHOLOGY ORDERA BLES Final Result PATHOLOGY [facility] [address] [place] [address] * eGFR (09/15/2024 8:00 AM SHOT DROPPER) eGFR 83 >=60 mL/min/1. 73 m2 Comment: Interpretive Data Reference Interval Normal >/= 90 mL/min/1.73m2 Mildly decreased* 60 - 89 mL/min/1.73m2 Mildly to moderately decreased 45 - 59 mL/min/1.73m2 Moderately to severely decreased 30 - 44 mL/min/1.73m2 Severely decreased 15 - 29 mL/min/1.73m2 Kidney Failure < 15 mL/min/1.73m2 *Relative to young adult level Estimated glomerular filtration rate is determined by the 2020 CKD-EPI equation recommended by the National Kidney Foundation (A Unifying Approach to GFR Estimation: Recommendations of the NKF-ASK Task Force on Reassessing the Inclusion of Race in Diagnosing Kidney Disease, JASN 202). The CKD-EPI equation should not be used for patients with unstable renal function and has not been validated in children and those over 70. Current interpretive data was last reviewed 2021. Testing performed by: [address] [address] Blood 09/15/2024 8:00 AM SHOT DROPPER 09/15/2024 12:45 PM SHOT DROPPER Harish Crain MD LAB BLOOD ORDERABLES Final Result [facility] [address] [place] [address] * Differential, auto (09/15/2024 8:00 AM SHOT DROPPER) Neutrophil abs 2.5 1.5 - 6.5 K/cumm Comment:Testing performed by : [address] [address] Imm gran abs 0.0 0.0 - 0.1 K/cumm [facility] Comment:Testing performed by : [address] [address] Lymphocyte abs 1.1 0.8 - 3.3 K/cumm [facility] Comment:Testing performed by : [address] [address] Monocyte abs 0.5 0.2 - 0.8 K/cumm [facility] Comment:Testing performed by : [address] [address] Eosinophil abs 0.3 0.0 - 0.5 K/cumm [facility] Comment:Testing performed by : [address] [address] Basophil abs 0.0 0.0 - 0.1 K/cumm [facility] Comment:Testing performed by : [address] [address] Neutrophil pct 55.8 % [facility] Comment: Interpretive Data Percent cell count reference ranges are not reported, since discordance with absolute values may lead to misinterpretation of CBC data. Current Interpretive Data was last revised on 2017. Testing performed by: [facility], [address] [place] [address]., [address] Imm gran pct 0.2 % [facility] Comment: Interpretive Data Percent cell count reference ranges are not reported, since discordance with absolute values may lead to misinterpretation of CBC data. Current Interpretive Data was last revised on 2017. Testing performed by: [address] [address] Lymphocyte pct 24.5 % [facility] Comment: Interpretive Data Percent cell count reference ranges are not reported, since discordance with absolute values may lead to misinterpretation of CBC data. Current Interpretive Data was last revised on 2017. Testing performed by: [address], [address] Monocyte pct 11.6 % [facility] Comment: Interpretive Data Percent cell count reference ranges are not reported, since discordance with absolute values may lead to misinterpretation of CBC data. Current Interpretive Data was last revised on 2017. Testing performed by: [address] [address] Eosinophil pct 7.0 % [facility] Comment: Interpretive Data Percent cell count reference ranges are not reported, since discordance with absolute values may lead to misinterpretation of CBC data. Current Interpretive Data was last revised on 2017. Testing performed by: [address] [address] Basophil pct 0.9 % [facility] Comment: Interpretive Data Percent cell count reference ranges are not reported, since discordance with absolute values may lead to misinterpretation of CBC data. Current Interpretive Data was last revised on 2017. Testing performed by: [address] [address] Blood 09/15/2024 8:00 AM SHOT DROPPER 09/15/2024 12:30 PM SHOT DROPPER Harish Crain MD LAB BLOOD ORDERABLES Final Result [address] [place] [address] * CBC with auto differential (09/15/2024 8:00 AM SHOT DROPPER) WBC 4.4 3.8 - 9.9 K/cumm Comment:Testing performed by : [address], [address] Hgb 14.6 13.0 - 17.5 g/dL [facility] Comment:Testing performed by : [address], [address] Hct 44.8 38.9 - 50.3 % [facility] Comment:Testing performed by : [address], [address] Plt 249 150 - 400 K/cumm [facility] Comment:Testing performed by : [address], [address] MPV 11.0 9.1 - 12.3 fL [facility] Comment:Testing performed by : [address], [address] RBC 4.75 4.30 - 5.80 M/cumm [facility] Comment:Testing performed by : [address], [address] MCV 94.3 81.3 - 96.4 fL [facility] Comment:Testing performed by : [address], [address] MCH 30.7 27.1 - 33.3 pg [facility] Comment:Testing performed by : [address], [address] MCHC 32.6 32.3 - 35.7 g/dL [facility] Comment:Testing performed by : [address], [address] RDW CV 11.9 11.1 - 14.9 % [facility] Comment:Testing performed by : [address], [address] RDW SD 41.4 35.7 - 48.1 fL [facility] Comment:Testing performed by : [address] [place]., [address] NRBC abs 0.00 0.00 - 0.01 K/cumm [facility] Comment:Testing performed by : [facility], [address] [place] [address]., [address] Blood 09/15/2024 8:00 AM SHOT DROPPER 09/15/2024 12:30 PM SHOT DROPPER Harish Crain MD LAB BLOOD ORDERABLES Final Result [facility] [address] [place] [address] * Lipid panel (09/15/2024 8:00 AM SHOT DROPPER) Cholesterol 195 30 - 199 mg/dL Comment: Interpretive Data Ages < or = 19 years Acceptable: <170 mg/dL Borderline high: 170-199 mg/dL High: >or= 200 mg/dL Ages > or = 20 years Desirable: <200 mg/dL Borderline high: 200-239 mg/dL High: >or= 240 mg/dL Literature References: 1. Expert Panel on Integrated Guidelines for Cardiovascular Health and Risk Reduction in Children and Adolescents. Pediatrics 2011;128:S213 2. NCEP Expert Panel. Circulation 2004;110:227 Current Interpretive Data was last revised on 2018. Testing performed by: [facility], [address] [place] [address]., [address] Triglycerides 48 <=149 mg/dL MARIELY STOCK Comment: Interpretive Data Ages < or = 9 years Acceptable: <75 mg/dL Borderline high: 75-99 mg/dL High: >or= 100 mg/dL Ages 10 to 20 years Acceptable: <90 mg/dL Borderline high: 90-129 mg/dL High: >or= 130 mg/dL Ages > or = 20 years Desirable: <150 mg/dL Borderline high: 150-199 mg/dL High: 200-499 mg/dL Very high: >or= 499 mg/dL Literature References: 1. Expert Panel on Integrated Guidelines for Cardiovascular Health and Risk Reduction in Children and Adolescents. Pediatrics 2011;128:S213 2. NCEP Expert Panel. Circulation 2004;110:227 Current Interpretive Data was last revised on 2018. Testing performed by: [facility], [address] [place] [address]., [address] HDL 68 >=40 mg/dL MARIELY Comment: Interpretive Data Ages < or = 19 years Acceptable: >45 mg/dL Borderline low: 40-45 mg/dL Low: <40 mg/dL Ages > or = 20 years Desirable: >or= 60 mg/dL Low: <40 mg/dL Literature References: 1. Expert Panel on Integrated Guidelines for Cardiovascular Health and Risk Reduction in Children and Adolescents. Pediatrics 2011;128:S213 2. NCEP Expert Panel. Circulation 2004;110:227 Current Interpretive Data was last revised on 2018. Testing performed by: [facility], [address] [place] [address]., [address] LDL, calculated 118 <=129 mg/dL MARIELY Comment: Interpretive Data Ages < or = 19 years Acceptable: <110 mg/dL Borderline high: 110-129 mg/dL High: >or= 130 mg/dL Ages > or = 20 years Optimal: <100 mg/dL Near optimal: 100-129 mg/dL Borderline high: 130-159 mg/dL High: >160 mg/dL Calculated using the Brando LDL-C estimating equation. This equation was implemented on 2024. Prior to this date LDL-C was estimated using the Friedewald equation. Literature References: 1. Expert Panel on Integrated Guidelines for Cardiovascular Health and Risk Reduction in Children and Adolescents. Pediatrics 2011;128:S213 2. NCEP Expert Panel. Circulation 2004;110:227 3. Brando Hou al. GLENN Cardiol. 2019November 20;5(5):540-548. doi: 10.1001/[email or web address].2020.0013 Current Interpretive Data was last revised on 2024. Testing performed by: [facility], [address] [place] [address], [place]., [address] Non-HDL Cholesterol 127 mg/dL MARIELY STOCK Comment: Interpretive Data Ages < or = 19 years Acceptable: <120 mg/dL Borderline high: 120-144 mg/dL High: >145 mg/dL Ages > or = 20 years When triglycerides are >200 mg/dL, Non-HDL cholesterol is a secondary target of therapy with treatment goals that are 30 mg/dL greater than the LDL cholesterol target. Literature References: 1. Expert Panel on Integrated Guidelines for Cardiovascular Health and Risk Reduction in Children and Adolescents. Pediatrics 2011;128:S213 2. NCEP Expert Panel. Circulation 2004;110:227 Current Interpretive Data was last revised on 2018. Testing performed by: [facility], [address] [place] [address]., [address] Chol/HDL ratio 3 CERNER CH Comment:Testing performed by : [address] [address] Blood 09/15/2024 8:00 AM SHOT DROPPER 09/15/2024 12:30 PM SHOT DROPPER Harish Crain MD LAB BLOOD ORDERABLES Final Result [place] [address] Department [place] [address] * Comprehensive metabolic panel (09/15/2024 8:00 AM SHOT DROPPER) Sodium 142 135 - 145 mmol/L Comment:Testing performed by : [address] [address] Potassium, pl 4.5 3.3 - 4.9 mmol/L CERNER CH Comment:Testing performed by : [address] [address] Chloride 105 97 - 110 mmol/L CERNER CH Comment:Testing performed by : [address] [address] CO2 25 22 - 32 mmol/L CERNER CH Comment:Testing performed by : [address] [address] Anion gap 12 2 - 15 mmol/L CERNER CH Comment:Testing performed by : [address] [address] BUN 21 6 - 25 mg/dL CERNER CH Comment:Testing performed by : [address] [address] Creatinine 1.01 0.80 - 1.30 mg/dL CERNER CH Comment:Testing performed by : [address] [address] Glucose 100 70 - 199 mg/dL CERNER CH Comment: Interpretive Data Fasting glucose >/= 126 mg/dl is diagnostic for diabetes. Fasting is defined as no caloric intake for at least 8 hours. Fasting glucose between 100 mg/dl to 125 mg/dl is diagnostic of prediabetes. In a patient with classic symptoms of hyperglycemia or hyperglycemic crisis, a random glucose >/= 200 mg/dl is diagnostic for diabetes. In the absence of unequivocal hyperglycemia, results should be confirmed by repeat testing. The classification and Diagnosis of Diabetes Diabetes Care 202; 46: S19-S40. Current interpretive data was last revised 2022. Testing performed by: [facility], [address] [place] [address]., [address] Calcium 9.4 8.5 - 10.3 mg/dL CERNER CH Comment:Testing performed by : [address] [address] Bilirubin, total 0.5 0.1 - 1.2 mg/dL CERNER CH Comment:Testing performed by : [address], [address] Protein, pl 6.8 6.5 - 8.5 g/dL CERNER CH Comment:Testing performed by : [address] [address] Albumin 4.2 3.5 - 5.0 g/dL CERNER CH Comment:Testing performed by : [address] [address] Alk phos 65 40 - 130 Units/L CERNER CH Comment:Testing performed by : [address], [address] ALT 20 7 - 55 Units/L CERNER CH Comment:Testing performed by : [address] [address] AST 17 10 - 50 Units/L CERNER CH Comment:Testing performed by : [address] [address] Blood 09/15/2024 8:00 AM SHOT DROPPER 09/15/2024 12:30 PM SHOT DROPPER Harish Crain MD LAB BLOOD ORDERABLES Final Result [facility] [address] Department [place] [address] * Colonoscopy (07/01/2024 7:08 AM SHOT DROPPER) Anatomical Region Laterality Modality Other Narrative Procedure Note Charlie Cantrell, - 07/01/2024 7:08 AM CST [facility] Patient Name: Live Rose Procedure Date: 07/01/2024 7:08 AM Date of : 1960 Admit Type: Outpatient Age: 63 Gender: Male Attending MD: Charlie Cantrell D.O. Room: [facility] ENDOSCOPY ROOM 2 Note Status: Finalized Patient Profile: Refer to note in patient chart for documentation of history and physical. Procedure: Colonoscopy Indications: High risk colon cancer surveillance: Personalhistory of colonic polyps, Last colonoscopy: December 2017 Referring MD: Harish Crain M.D. Providers: Charlie Cantrell D.O. Impression: - The examined portion of the ileum was normal. - The entire examined colon is normal on direct and retroflexion views. - No specimens collected. Recommendation: - Discharge patient to home. - Resume previous diet. - Continue present medications. - Repeat colonoscopy in 5 years for surveillance. - Return to primary care physician PRN. Medicines: Monitored Anesthesia Care Complications: No immediate complications. Estimated Blood Loss: Estimated blood loss was minimal. Procedure: Pre-Anesthesia Assessment: - As per anesthesia. The benefits, risks and alternatives of theprocedure and sedation were discussed and informed consentwas obtained. All questions were answered. Please referto the signed informed consent document in the medical record. The bowel preparation used was Miralax via split dose instruction. The bowel preparation usedwas bisacodyl tablets via split dose instruction. The scope was passed under direct vision. The Pediatric Colonoscope PCF-H190L [id number] was introducedthrough the anus and advanced to the 5 cm into the ileum.The terminal ileum, ileocecal valve, appendicealorifice, and rectum were photographed. The colonoscopy was somewhat difficult due to a redundant colon. The patient tolerated the procedure well. The qualityof the bowel preparation was good. Findings: The perianal and digital rectal examinations were normal. The terminal ileum appeared normal. The entire examined colon appeared normal on direct and retroflexion views. Electronically signed by Charlie Cantrell M.D. Charlie Cantrell D.O. 07/01/2024 7:53:14 AM Number of Addenda: 0 Note Initiated On: 07/01/2024 7:08 AM Procedure Code(s): --- Professional --- G0105, Colorectal cancer screening; colonoscopy on individual at high risk --- Technical --- G0105, Colorectal cancer screening; colonoscopy on individual at high risk Diagnosis Code(s): --- Professional --- Z86.010, Personal history of colonic polyps --- Technical --- Z86.010, Personal history of colonic polyps CPT copyright 2020 [employer]. All rights reserved. The codes documented in this report are preliminary and upon foreign collection clerk reviewmay be revised to meet current compliance requirements. Recognized by the [employer] for promoting quality in endoscopy us Charlie MayTriston Teresobenjamindominguez DO ENDOSCOPY PROCEDURES Final Res ult * PSA screen (11/06/2023 7:59 AM CDT) PSA-Total 4.14 <=5.40 ng/mL Comment: Interpretive Data AGE SEX REFERENCE INTERVAL 0 minutes-150 years Female None 0 minutes-49 years Male None 50-59 years Male 0-3.90 60-69 years Male 0-5.40 70-79 years Male 0-6.20 80-150 years Male 0-6.20 The Js PSA Total assay procedure was used. Results from different manufacturers or methods may not be comparable. Serial testing should be performed using the same method. Current interpretive data last revised 21. Testing performed by: [facility], [address] [place] [address], [place]., [address] Specimen (Source) Anatomical Location / Laterality Collection Method / Volume
--- OUTSIDE RECORDS SUMMARY | 2024-12-05 11:08 | XMS_ITS | Clinical Summary ---
Author Organization [facility] Address [address] [place] [address] Phone Care Team Providers Care Design Director Name Role Phone Harish Crain MD Primary Care Provider [phone] Allergies Active Allergy Reactions Criticality Noted Date Comments Penicillins Rash 05/16/2023 Medications No known medications Social History Tobacco Use Types Packs/Day Years Used Date Smoking Tobacco: Unknown Tobacco Cessation:Counseling Given: Not Answered Sex and Gender Information Value Date Recorded Sex Assigned at Not on file Legal Sex Male 9:52 PM CDT Gender Identity Not on file Sexual Orientation Not on file Last Filed Vital Signs Vital Sign Reading Time Taken Comments Blood Pressure 157/82 05/16/2023 1:15 PM CDT Pulse 52 05/16/2023 1:15 PM CDT Temperature 36.1 C (97 F) 05/16/2023 11:41 AM CDT Respiratory Rate 17 05/16/2023 11:41 AM CDT Oxygen Saturation 100% 05/16/2023 1:15 PM CDT Inhaled Oxygen Concentration - - Weight 70.3 kg (155 lb) 05/16/2023 11:41 AM CDT Height 182.9 cm (6') 05/16/2023 11:41 AM CDT Body Mass Index 21.02 05/16/2023 11:41 AM CDT Plan of Treatment Health Maintenance Due Date Last Done Comments Hepatitis C Virus (HCV) Screening 1960 Colonoscopy 2004 Colorectal Cancer Screening 2004 Cologuard 2009 Immunochemical Fecal Occult Blood 2009 Pneumococcal Immunization (5 0+ years) (1 of 1 - PCV) 2009 Zoster Immunization (1 of 2) 2009 PSA Discussion 2014 Influenza Immunization (#1) 2024 SARS-COV-2 Immunization ( season) 2024 05/03/2023, 11/05/2020, 10/08/2020 Respiratory Syncytial Virus (RSV) Immunization (Adult) (1 - 1-dose 75+ series) 2034 DTaP/Tdap/Td Immunization Discontinued 04/25/2021 TdaP Immunization Completed 04/25/2021 Hepatitis B Immunization Aged Out No longer eligible based on patient's age to complete this topic Meningococcal Immunization (ACWY) Aged Out No longer eligible based on patient's age to complete this topic Rotavirus Immunization Aged Out No lo nger eligible based on patient's age to complete this topic Insurance [facility] Care Teams Design Director Relationship Specialty Start Date End Date Harish C[place] [address] [place] [address] PCP - General Infectious Disease 05/16/23
== END 2024-12-05 11:04 | disposition home or self-care (01) ==
PROVIDERS: PCP Internal Medicine Infectious Disease; Visit Provider Urology
DX: C61 Malignant neoplasm of prostate (principal)
CPT/HCPCS: 78815; A9596